=== PATIENT | male | born 1960 | race Caucasian/White ===

== ENCOUNTER 2016-12-27 12:52 | Inpatient (IN) | payer OTHER ==
[2016-12-27 14:19] LABS: CHLORIDE,CL 101 mmol/L (98-110); SODIUM,NA 135 mmol/L (136-146)
[2016-12-27] MEDS: fentaNYL 100 MCG/2 ML SDV IVPUSH PRN ×2 (14:31→15:41)
[2016-12-27] MEDS: Ondansetron 4 MG/2 ML SDV IVPUSH PRN ×2 (14:31→19:57)
[2016-12-27] MEDS: Piperacillin/Tazobactam 3.375 GM in Sodium Chloride 0.9% 50 ML IV SCH ×2 (14:33→19:58)
[2016-12-27] MEDS: Sodium Chloride 0.9% 1,000 ML IV SCH ×2 (14:40→22:58)
[2016-12-27] MEDS ORDERED: Temazepam 15 MG Cap PO PRN (15:28)
[2016-12-27] MEDS ORDERED: Acetaminophen 325 MG Tab PO PRN (15:28)
--- NOTE | 2016-12-27 15:34 | PCM.HP ---
H&P History of Present Illness - General Date of Service: 12/27/16 Admit Problem/Dx: Admission Diagnosis/Problem Admission Diagnosis/Problem Pyelonephritis Source of Information: Patient, Family - History of Present Illness Initial Comments - Free Text/Narative: He has several day history of left flank pain. He had some feelings of fever and nausea the pain worsened and he felt it moving mild gross hematuria yesterday he is feeling a little better He was seen by Dr Ping Nguyen in the office and admission was recommended. Dr Nguyen consulted the hospitalist service. - Related Data Allergies/Adverse Reactions: Allergies Allergy/AdvReac Type Severity Reaction Status Date / Time No Known Allergies Allergy Verified 12/27/16 14:31 Past Medical History Cardiovascular History: Denies: CAD, Cardiomyopathy, Hypertension, MS Respiratory History: Denies: COPD Gastrointestinal History: Denies: Cirrhosis Genitourinary History: Reports: Pyelonephritis, Renal Calculus, Other (See Below ) (prior kidney stone) Neurological History: Denies: Alzheimers Disease, CVA Psychiatric History: Denies: Alzheimers Disease, Dementia Endocrine/Metabolic History: Denies: Diabetes, Type I, Diabetes, Type II Hematologic History: Denies: Anticoagulation Therapy, Bleeding Disorder Dermatologic History: Reports: Cellulitis Other Dermatologic History: lower extremity - Infectious Disease History Infectious Disease History: Reports: MRSA Other Infectious Disease History: Patient verbalized cleared from MRSA from Cellulitis Social & Family History - Family History Family Medical History: Unobtainable - Tobacco Use Smoking Status *Q: Never Smoker - Caffeine Use Caffeine Use: Reports: Coffee - Recreational Drug Use Recreational Drug Use: No H&P Review of Systems - Review of Systems: Review Of Systems: See Below General: Reports: Fever (possible recent fever) HEENT: Denies: Sore Throat Pulmonary: Denies: Shortness of Breath, Cough, Sputum Cardiovascular: Denies: Chest Pain Gastrointestinal: Denies: Black Stool, Bloody Stool, Hematemesis, Hematochezia Genitourinary: Denies: Dysuria, Frequency, Hematuria Psychiatric: Denies: Confusion Exam - Exam Exam: See Below - Vital Signs Vital Signs: Last Vital Signs Temp 98.8 F 12/27/16 14:38 Pulse 69 12/27/16 14:38 Resp 18 12/27/16 14:38 BP 134/84 12/27/16 14:38 Pulse Ox 99 12/27/16 14:38 Weight: 64.7 kg - Exam General: Alert, Oriented, Cooperative Neck: Supple, Trachea Midline Lungs: Clear to Auscultation, Normal Respiratory Effort Cardiovascular: Regular Rate, Regular Rhythm GI/Abdominal Exam: Soft, Non-Tender Back Exam: No: CVA Tenderness (L), CVA Tenderness (R) Extremities: No Pedal Edema Neuro Extensive - Motor, Sensory, Reflexes: No: Facial palsy (L), Facial Palsy ( R), Hemeplagia (R), Hemeplagia (L) - Patient Data Lab Results Last 24 hrs: Laboratory Results - last 24 hr 12/27/16 Range/Units 11:18 Sodium 135 L (136-146) mmol/L Potassium 4.7 (3.5-5.1) mmol/L Chloride 101 (98-110) mmol/L Carbon Dioxide 19 L (21-31) mmol/L BUN 37 H (6.0-23.0) mg/dL Creatinine 2.9 H (0.6-1.5) mg/dL Est Cr Clr Drug Dosing TNP Estimated GFR (MDRD) 22.5 ml/min Glucose 145 H (60-110) mg/dL Calcium 10.6 (8.8-10.8) mg/dL Total Bilirubin 1.2 (0.1-1.5) mg/dL AST 32 (5-40) IU/L ALT 24 (8-54) IU/L Alkaline Phosphatase 101 (40-150) Total Protein 8.4 H (6.0-8.0) g/dL Albumin 5.3 H (3.5-5.0) g/dL Globulin 3.1 (2.0-3.5) g/dL Albumin/Globulin Ratio 1.7 (1.3-2.8) Result Diagrams: 12/27/16 11:18 *Q Meaningful Use (ADM) - VTE *Q VTE Criteria *Q: - Stroke *Q Stroke Criteria *Q: - AMI *Q AMI Criteria *Q: - Problem List (1) Pyelonephritis SNOMED Code(s): 09515671 ICD Code: N12 - TUBULO-INTERSTITIAL NEPHRITIS, NOT SPCF ACUTE OR CHRONIC Status: Acute Current Visit: Yes (2) Ureteral stone SNOMED Code(s): 44280315 ICD Code: N20.1 - CALCULUS OF URETER Status: Acute Current Visit: Yes (3) Pulmonary nodule SNOMED Code(s): 078791617 ICD Code: R91.1 - SOLITARY PULMONARY NODULE Status: Acute Current Visit: Yes Problem List Initiated/Reviewed/Updated: Yes Orders Last 24hrs: Active Orders 24 hr Category Date Time Status Patient Status [ADT] Routine ADT 12/27/16 15:28 Ordered Oxygen Therapy [RC] PRN Care 12/27/16 15:28 Ordered VTE/DVT Education [RC] PER UNIT ROUTINE Care 12/27/16 15:28 Ordered Vital Signs [RC] Q4H Care 12/27/16 15:28 Ordered Regular Diet [DIET] Diet 12/27/16 Dinner Active BASIC METABOLIC PANEL,BMP [CHEM] AM Lab 12/28/16 05:11 Ordered CBC WITH AUTO DIFF [HEME] AM Lab 12/28/16 05:11 Ordered CULTURE URINE [RM] Routine Lab 12/27/16 11:18 Received MAGNESIUM [CHEM] AM Lab 12/28/16 05:11 Ordered Acetaminophen [Tylenol] Med 12/27/16 15:28 Ordered 500 mg PO Q4H PRN Ondansetron [Zofran] Med 12/27/16 13:59 Active 4 mg IVPUSH Q4H PRN Piperacillin/Tazobactam [Piperacil-Tazobact] 3.375 gm Med 12/27/16 14:00 Active Sodium Chloride 0.9% [Normal Saline] 50 ml IV Q6H Sodium Chloride 0.9% [Normal Saline] 1,000 ml Med 12/27/16 14:00 Active IV ASDIRECTED Temazepam [Restoril] Med 12/27/16 15:28 Ordered 15 mg PO BEDTIME PRN fentaNYL [Sublimaze] Med 12/27/16 13:58 Active 50 mcg IVPUSH Q1H PRN Resuscitation Status Routine Resus Stat 12/27/16 15:28 Ordered Medication Orders Fentanyl (Sublimaze) 50 mcg IVPUSH Q1H PRN PRN Reason: Pain Last Admin: 12/27/16 14:31 Dose: 50 mcg Sodium Chloride (Normal Saline) 1,000 mls @ 125 mls/hr IV ASDIRECTED REINALDO Last Admin: 12/27/16 14:40 Dose: 125 mls/hr Piperacillin Sod/Tazobactam (Sod 3.375 gm/ Sodium Chloride) 50 mls @ 100 mls/ hr IV Q6H REINALDO Last Admin: 12/27/16 14:33 Dose: 100 mls/hr Ondansetron HCl (Zofran) 4 mg IVPUSH Q4H PRN PRN Reason: Nausea/Vomiting Last Admin: 12/27/16 14:31 Dose: 4 mg Assessment/Plan Comment:: I advised he and his regarding CT finding of pulmonary nodule and recommendation for repeat imaging in one year will get PA/Lat CXR in am strain urine antibiotics urine culture If not improving tomorrow may need urology consult Hair Mallory MD
[2016-12-27] MEDS: HYDROmorphone/Normal Saline 6 MG/30 ML PCA Vial IV PRN (16:44)
--- NOTE | 2016-12-27 16:50 | CR ---
EXAMINATION: Two-view chest (PA and Lateral views). HISTORY: Pulmonary nodule. FINDINGS: The trachea is midline. The cardiomediastinal silhouette is within normal limits. No pulmonary infilt rates, effusions or pneumothorax. Osseous structures appear unremarkable. IMPRESSION: No acute cardiopulmonary process.
[2016-12-27] MEDS: Tamsulosin 0.4 MG Cap.ER PO SCH (21:40)
[2016-12-28] MEDS: Piperacillin/Tazobactam 3.375 GM in Sodium Chloride 0.9% 50 ML IV SCH ×4 (01:59→20:15)
[2016-12-28] MEDS: Ondansetron 4 MG/2 ML SDV IVPUSH PRN ×4 (02:38→16:29)
[2016-12-28] MEDS: fentaNYL 100 MCG/2 ML SDV IVPUSH PRN ×2 (02:38→10:43)
[2016-12-28] MEDS: Sodium Chloride 0.9% 1,000 ML IV SCH ×3 (07:08→20:14)
[2016-12-28] MEDS: Tamsulosin 0.4 MG Cap.ER PO SCH (08:46)
[2016-12-28] MEDS ORDERED: Scopolamine 1.5 MG Transdermal Patch TOP ONE (12:42)
--- NOTE | 2016-12-28 12:46 | PCM.PREANE ---
Preanesthetic Assessment - Anesthesia/Transfusion/Family Hx Anesthesia History: Prior Anesthesia Reaction (N/V) Type of Anesthesia Reaction: Excessive Nausea/Vomiting Transfusion History: Prior Transfusion Without Reaction - Review of Systems General: No Symptoms Pulmonary: No Symptoms Cardiovascular: No Symptoms Gastrointestinal: Nausea, Vomiting Other: Reports: None - Physical Assessment NPO Status Date: 12/28/16 NPO Status Time: 08:30 O2 Sat by Pulse Oximetry: 96 Respiratory Rate: 14 Vital Signs: Last Vital Signs Temp 36.6 C 12/28/16 11:00 Pulse 96 12/28/16 11:00 Resp 14 12/28/16 11:00 BP 103/70 12/28/16 11:00 Pulse Ox 96 12/28/16 11:00 Height: 1.78 m Weight: 64.7 kg ASA Class: 2E Mental Status: Alert & Oriented x3 Airway Class: Mallampati = 2 Dentition: Reports: Normal Dentition, Dentures Thyro-Mental Finger Breadths: 3 Mouth Opening Finger Breadths: 3 ROM/Head Extension: Full Lungs: Clear to Auscultation, Normal Respiratory Effort Cardiovascular: Regular Rate, Regular Rhythm - Lab Values: Laboratory Last Values WBC 13.87 K/uL (4.0-11.0) H 12/28/16 04:48 RBC 4.07 M/uL (4.50-5.90) L 12/28/16 04:48 Hgb 13.1 g/dL (13.0-17.0) 12/28/16 04:48 Hct 38.0 % (38.0-50.0) 12/28/16 04:48 MCV 93.4 fL (80.0-98.0) 12/28/16 04:48 MCH 32.2 pg (27.0-32.0) H 12/28/16 04:48 MCHC 34.5 g/dL (31.0-37.0) 12/28/16 04:48 RDW Std Deviation 42.1 fl (28.0-62.0) 12/28/16 04:48 RDW Coeff of Quiana 12 % (11.0-15.0) 12/28/16 04:48 Plt Count 299 K/uL (150-400) 12/28/16 04:48 MPV 10.80 fL (7.40-12.00) 12/28/16 04:48 Neut % (Auto) 71.0 % (48.0-80.0) 12/28/16 04:48 Lymph % (Auto) 17.0 % (16.0-40.0) 12/28/16 04:48 [place] % (Auto) 10.4 % (0.0-15.0) 12/28/16 04:48 Eos % (Auto) 1.3 % (0.0-7.0) 12/28/16 04:48 Baso % (Auto) 0.3 % (0.0-1.5) 12/28/16 04:48 Neut # (Auto) 9.9 K/uL (1.4-5.7) H 12/28/16 04:48 Lymph # (Auto) 2.4 K/uL (0.6-2.4) 12/28/16 04:48 [place] # (Auto) 1.4 K/uL (0.0-0.8) H 12/28/16 04:48 Eos # (Auto) 0.2 K/uL (0.0-0.7) 12/28/16 04:48 Baso # (Auto) 0.0 K/uL (0.0-0.1) 12/28/16 04:48 Nucleated RBC % 0.0 /100WBC 12/28/16 04:48 Nucleated RBCs # 0 K/uL 12/28/16 04:48 Sodium 137 mmol/L (136-146) 12/28/16 04:48 Potassium 4.0 mmol/L (3.5-5.1) 12/28/16 04:48 Chloride 106 mmol/L (98-110) 12/28/16 04:48 Carbon Dioxide 17 mmol/L (21-31) L 12/28/16 04:48 BUN 35 mg/dL (6.0-23.0) H 12/28/16 04:48 Creatinine 2.2 mg/dL (0.6-1.5) H 12/28/16 04:48 Est Cr Clr Drug Dosing 33.90 mL/min 12/28/16 04:48 Estimated GFR (MDRD) 31.0 ml/min 12/28/16 04:48 Glucose 97 mg/dL (60-110) 12/28/16 04:48 Calcium 8.6 mg/dL (8.8-10.8) L 12/28/16 04:48 Magnesium 1.8 mEq/L (1.5-2.3) 12/28/16 04:48 Total Bilirubin 1.2 mg/dL (0.1-1.5) 12/27/16 11:18 AST 32 IU/L (5-40) 12/27/16 11:18 ALT 24 IU/L (8-54) 12/27/16 11:18 Alkaline Phosphatase 101 (40-150) 12/27/16 11:18 Total Protein 8.4 g/dL (6.0-8.0) H 12/27/16 11:18 Albumin 5.3 g/dL (3.5-5.0) H 12/27/16 11:18 Globulin 3.1 g/dL (2.0-3.5) 12/27/16 11:18 Albumin/Globulin Ratio 1.7 (1.3-2.8) 12/27/16 11:18 - Allergies Allergies/Adverse Reactions: Allergies Allergy/AdvReac Type Severity Reaction Status Date / Time No Known Allergies Allergy Verified 12/27/16 14:31 - Acknowledgements Anesthesia Type Planned: General Anesthesia Pt an Appropriate Candidate for the Planned Anesthesia: Yes Alternatives and Risks of Anesthesia Discussed w Pt/Guardian: Yes Pt/Guardian Understands and Agrees with Anesthesia Plan: Yes PreAnesthesia Questionnaire - Past Health History Medical/Surgical History: Denies Medical/Surgical History (Neck surgery for herniated disc years back in cervical area, unsure but full neck extension without pain) Cardiovascular History: Reports: None. Denies: CAD, Cardiomyopathy, Hypertension, [place] Respiratory History: Reports: None. Denies: COPD Gastrointestinal History: Reports: None. Denies: Cirrhosis Genitourinary History: Reports: Pyelonephritis, Renal Calculus, Other (See Below ) (prior kidney stone) Neurological History: Reports: None. Denies: Alzheimers Disease, CVA Psychiatric History: Reports: None. Denies: Alzheimers Disease, Dementia Endocrine/Metabolic History: Reports: None. Denies: Diabetes, Type I, Diabetes , Type II Hematologic History: Reports: None. Denies: Anticoagulation Therapy, Bleeding Disorder Dermatologic History: Reports: Cellulitis Other Dermatologic History: lower extremity - Infectious Disease History Infectious Disease History: Reports: MRSA Other Infectious Disease History: Patient verbalized cleared from MRSA from Cellulitis - SUBSTANCE USE Smoking Status *Q: Never Smoker Recreational Drug Use History: No - CURRENT (IN HOUSE) MEDS Current Meds: Current Medications Acetaminophen (Tylenol) 500 mg PO Q4H PRN PRN Reason: Pain (Mild 1-3)/fever Fentanyl (Sublimaze) 50 mcg IVPUSH Q1H PRN PRN Reason: Pain Last Admin: 12/28/16 10:43 Dose: 50 mcg Hydromorphone HCl (Dilaudid Cooling Tower Operator 6 Mg In Ns 30 Ml) 6 mg IV ASDIRECTED PRN; Protocol PRN Reason: pain Last Admin: 12/27/16 16:44 Dose: 6 mg Sodium Chloride (Normal Saline) 1,000 mls @ 125 mls/hr IV ASDIRECTED REINALDO Last Admin: 12/28/16 07:08 Dose: 125 mls/hr Piperacillin Sod/Tazobactam (Sod 3.375 gm/ Sodium Chloride) 50 mls @ 100 mls/ hr IV Q6H REINALDO Last Admin: 12/28/16 08:10 Dose: 100 mls/hr Ondansetron HCl (Zofran) 4 mg IVPUSH Q4H PRN PRN Reason: Nausea/Vomiting Last Admin: 12/28/16 10:43 Dose: 4 mg Scopolamine (Transderm-Scop) 1.5 mg TOP ONETIME ONE Stop: 12/28/16 12:43 Tamsulosin HCl (Flomax) 0.4 mg PO PCBREAKFAST REINALDO Last Admin: 12/28/16 08:46 Dose: 0.4 mg Temazepam (Restoril) 15 mg PO BEDTIME PRN PRN Reason: Sleep
[2016-12-28] MEDS: HYDROmorphone/Normal Saline 6 MG/30 ML PCA Vial IV PRN (13:56)
--- NOTE | 2016-12-28 14:44 | PCM.PN ---
- Review of Systems Systems Review Comment:: feeling better, pain has moved from left flank to groin. - Patient Data Vitals - Most Recent: Last Vital Signs Temp 36.6 C 12/28/16 11:00 Pulse 96 12/28/16 11:00 Resp 14 12/28/16 12:46 BP 103/70 12/28/16 11:00 Pulse Ox 96 12/28/16 12:46 Weight - Most Recent: 64.7 kg I&O - Last 24 Hours: Intake & Output 12/27/16 12/28/16 12/28/16 22:59 06:59 14:59 Intake Total 1283 50 100 Balance 1283 50 100 Lab Results Last 24 Hours: Laboratory Results - last 24 hr 12/28/16 12/28/16 Range/Units 04:48 04:48 WBC 13.87 H (4.0-11.0) K/uL RBC 4.07 L (4.50-5.90) M/uL Hgb 13.1 (13.0-17.0) g/dL Hct 38.0 (38.0-50.0) % MCV 93.4 (80.0-98.0) fL MCH 32.2 H (27.0-32.0) pg MCHC 34.5 (31.0-37.0) g/dL RDW Std Deviation 42.1 (28.0-62.0) fl RDW Coeff of Quiana 12 (11.0-15.0) % Plt Count 299 (150-400) K/uL MPV 10.80 (7.40-12.00) fL Neut % (Auto) 71.0 (48.0-80.0) % Lymph % (Auto) 17.0 (16.0-40.0) % [place] % (Auto) 10.4 (0.0-15.0) % Eos % (Auto) 1.3 (0.0-7.0) % Baso % (Auto) 0.3 (0.0-1.5) % Neut # (Auto) 9.9 H (1.4-5.7) K/uL Lymph # (Auto) 2.4 (0.6-2.4) K/uL [place] # (Auto) 1.4 H (0.0-0.8) K/uL Eos # (Auto) 0.2 (0.0-0.7) K/uL Baso # (Auto) 0.0 (0.0-0.1) K/uL Nucleated RBC % 0.0 /100WBC Nucleated RBCs # 0 K/uL Sodium 137 (136-146) mmol/L Potassium 4.0 (3.5-5.1) mmol/L Chloride 106 (98-110) mmol/L Carbon Dioxide 17 L (21-31) mmol/L BUN 35 H (6.0-23.0) mg/dL Creatinine 2.2 H (0.6-1.5) mg/dL Est Cr Clr Drug Dosing 33.90 mL/min Estimated GFR (MDRD) 31.0 ml/min Glucose 97 (60-110) mg/dL Calcium 8.6 L (8.8-10.8) mg/dL Magnesium 1.8 (1.5-2.3) mEq/L Med Orders - Current: Current Medications Acetaminophen (Tylenol) 500 mg PO Q4H PRN PRN Reason: Pain (Mild 1-3)/fever Fentanyl (Sublimaze) 50 mcg IVPUSH Q1H PRN PRN Reason: Pain Last Admin: 12/28/16 10:43 Dose: 50 mcg Hydromorphone HCl (Dilaudid Environmental Studies Department Chair 6 Mg In Ns 30 Ml) 6 mg IV ASDIRECTED PRN; Protocol PRN Reason: pain Last Admin: 12/28/16 13:56 Dose: 6 mg Sodium Chloride (Normal Saline) 1,000 mls @ 125 mls/hr IV ASDIRECTED REINALDO Last Admin: 12/28/16 07:08 Dose: 125 mls/hr Piperacillin Sod/Tazobactam (Sod 3.375 gm/ Sodium Chloride) 50 mls @ 100 mls/ hr IV Q6H REINALDO Last Admin: 12/28/16 13:04 Dose: 100 mls/hr Ondansetron HCl (Zofran) 4 mg IVPUSH Q4H PRN PRN Reason: Nausea/Vomiting Last Admin: 12/28/16 10:43 Dose: 4 mg Tamsulosin HCl (Flomax) 0.4 mg PO PCBREAKFAST REINALDO Last Admin: 12/28/16 08:46 Dose: 0.4 mg Temazepam (Restoril) 15 mg PO BEDTIME PRN PRN Reason: Sleep Discontinued Medications Scopolamine (Transderm-Scop) 1.5 mg TOP ONETIME ONE Stop: 12/28/16 12:43 Last Admin: 12/28/16 13:04 Dose: 1.5 mg - Problem List Review Problem List Initiated/Reviewed/Updated: Yes - My Orders Last 24 Hours: My Active Orders 12/28/16 14:42 Antiembolic Devices [RC] PER UNIT ROUTINE SCD [Sequential Compression Device] [OM.PC] Routine 12/28/16 Lunch NPO Now [Nothing per Oral Now Diet] [DIET] - Plan Plan:: 56 yo male admitted for pyelonephritis with obstructing stone. Dr. Arteaga was been consulted. Will make patient NPO for possible procedure. Will continue Zosyn. Cultures are pending. I spoke with patient regarding CT finding of pulmonary nodule and need for repeat imaging in one year
[2016-12-28] MEDS ORDERED: Midazolam 1 MG/ML 2 ML SDV ONE (17:24)
[2016-12-28] MEDS ORDERED: fentaNYL 100 MCG/2 ML SDV ONE (17:24)
[2016-12-28] MEDS ORDERED: Propofol 200 MG/20 ML SDV ONE ×2 (17:24→18:24)
[2016-12-28] MEDS ORDERED: Dexamethasone 4 MG/ML 5 ML MDV ONE (17:25)
[2016-12-28] MEDS ORDERED: Ondansetron 4 MG/2 ML SDV ONE (17:25)
[2016-12-28] MEDS ORDERED: fentaNYL 100 MCG/2 ML SDV IVPUSH PRN (19:13)
--- NOTE | 2016-12-28 19:47 | PCM.POSTAN ---
POST ANESTHESIA ASSESSMENT - MENTAL STATUS Mental Status: Alert, Oriented - RESPIRATORY Respiratory Status: Respiratory Rate WNL, Airway Patent, O2 Saturation Stable - CARDIOVASCULAR CV Status: Pulse Rate WNL, Blood Pressure Stable - GASTROINTESTINAL GI Status: No Symptoms - PAIN Pain Score: 0 - POST OP HYDRATION Hydration Status: Adequate & Stable
--- NOTE | 2016-12-28 23:49 | CONS ---
DATE OF CONSULTATION: DATE OF : 1960 PRIMARY CARE PHYSICIAN: None PCP HISTORY OF PRESENT ILLNESS: A 56 years old. He was admitted to the hospital yesterday with sudden onset of left flank pain. His UA showed 30-40 white blood cells per high-power field. His CT scan showed a 3-mm partially obstructive left lower ureteral [place]. [place] [address]. I was asked to see him this morning. The patient is in pain. He actually is vomiting. He just had another dose of Zofran. I reviewed his CT scan. He does have a 3-mm left lower ureteral stone. The kidneys are clean. PHYSICAL EXAMINATION: GENERAL: Shows that he is alert and oriented. He is in pain. VITAL SIGNS: His vital signs are normal. HEART: Normal sinus rhythm. LUNGS: Clear. ABDOMEN: Shows [id number] tenderness over the left lower quadrant and left lumbar region. DIAGNOSIS: Left lower ureteral stone, 3 mm, with indication of recurrent urinary tract infection. RECOMMENDATION: Ureteroscopy and removal of stone. The patient has been on IV antibiotics since admission yesterday. SULLY KAYE /[id number]
[2016-12-29] MEDS: Piperacillin/Tazobactam 3.375 GM in Sodium Chloride 0.9% 50 ML IV SCH ×2 (01:40→08:37)
[2016-12-29] MEDS: Sodium Chloride 0.9% 1,000 ML IV SCH (03:28)
[2016-12-29] MEDS: Tamsulosin 0.4 MG Cap.ER PO SCH (08:37)
--- NOTE | 2016-12-29 10:06 | CR ---
EXAMINATION: Pelvis HISTORY: Ureteroscopy COMPARISON: CT dated 12/27/2016 TECHNIQUE: 2 images provided FINDINGS/IMPRESSION: Operative control films demonstrate selection of the left ureter balloon stone r emoval.
--- NOTE | 2016-12-29 11:26 | OR ---
SURGEON: Chiqui Arteaga M.D. DATE OF PROCEDURE: 12/28/2016 PREOPERATIVE DIAGNOSES: Left lower ureteral stone with urinary tract infection. POSTOPERATIVE DIAGNOSIS: Left lower ureteral stone with urinary tract infection. OPERATION: Cystoscopy, left ureteroscopy, stone removal. DESCRIPTION OF PROCEDURE: The patient is given general anesthesia, placed in dorsal lithotomy position, prepped and draped in sterile drapes. 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 Urethra was then dilated using the Hill II dilators, 28-Irish. The 25-Irish cystoscope was introduced into the bladder. A guidewire was advanced into the left ureter all the way up into the renal pelvis. The lower ureter was dilated using the UroMax II balloon dilator to approximately 15-Irish. The rigid ureteroscope was then advanced in the left lower ureter, and the stone was grasped and removed. With that done, the procedure was terminated. The bladder was emptied, and the patient was moved to recovery room in good condition. SULLY / VARGAS /[id number]
[2016-12-29 12:04] VITALS: BP 129/87
--- NOTE | 2016-12-29 12:15 | PCM.DCSUM1 ---
Discharge Summary - Discharge Data Discharge Date: 12/29/16 Discharge Disposition: Home, Self-Care 01 Condition: Good - Patient Summary/Data Consults: Consultations 12/28/16 14:44 Consult to Physician [CONS] Routine Hospital Course: Admission diagnosis Left pyelonephritis with obstructing kidney stone Acute Kidney injury Hospital Course: 56 yo male who presented with flank pain. CT scan reported 2-3mm obstructing stone in the distal left ureter and mild proximal hydronephrosis. His UA had 40 -50 WBC and +1 bacteria. WBC was 19,920 and Creatinine of 2.9. He was treated with zosyn and IV fluids. Dr. Atreaga was consulted and removed stone by ureteroscopy. Urine culture grew out mixed alexandra. He is discharged today on oral ciprofloxacin for six more days. He is to follow up with Dr. Nguyen. - Patient Instructions Diet: Regular Diet as Tolerated Activity: As Tolerated - Discharge Plan Prescriptions/Med Rec: oxyCODONE HCl/Acetaminophen [Percocet 5-325 mg Tablet] 1 each PO Q6HR #10 tablet Ciprofloxacin [Ciprofloxacin HCl] 500 mg PO BID #12 tablet Home Medications: Home Meds Ciprofloxacin [Ciprofloxacin HCl] 500 mg PO BID #12 tablet 12/29/16 [Rx] oxyCODONE HCl/Acetaminophen [Percocet 5-325 mg Tablet] 1 each PO Q6HR #10 tablet 12/29/16 [Rx] Patient Handouts: Pyelonephritis, Adult, [id number], Ciprofloxacin tablets, Ureteroscopy, Care After Referrals: Hugh Nguyen MD [Physician] - 01/02/17 1:30 pm - Patient Data Vitals - Most Recent: Last Vital Signs Temp 36.6 C 12/29/16 12:00 Pulse 66 12/29/16 12:00 Resp 20 12/29/16 12:00 BP 129/87 12/29/16 12:00 Pulse Ox 99 12/29/16 12:00 Weight - Most Recent: 64.7 kg I&O - Last 24 hours: Intake & Output 12/28/16 12/29/16 12/29/16 22:59 06:59 14:59 Intake Total 3049 1530 50 Output Total 500 550 Balance 2549 980 50 Lab Results - Last 24 hrs: Laboratory Results - last 24 hr 12/29/16 12/29/16 Range/Units 06:00 06:00 WBC 13.31 H (4.0-11.0) K/uL RBC 3.56 L (4.50-5.90) M/uL Hgb 11.6 L (13.0-17.0) g/dL Hct 33.1 L (38.0-50.0) % MCV 93.0 (80.0-98.0) fL MCH 32.6 H (27.0-32.0) pg MCHC 35.0 (31.0-37.0) g/dL RDW Std Deviation 40.8 (28.0-62.0) fl RDW Coeff of Quiana 12 (11.0-15.0) % Plt Count 285 (150-400) K/uL MPV 10.40 (7.40-12.00) fL Neut % (Auto) 82.2 H (48.0-80.0) % Lymph % (Auto) 9.7 L (16.0-40.0) % [place] % (Auto) 7.9 (0.0-15.0) % Eos % (Auto) 0.0 (0.0-7.0) % Baso % (Auto) 0.2 (0.0-1.5) % Neut # (Auto) 11.0 H (1.4-5.7) K/uL Lymph # (Auto) 1.3 (0.6-2.4) K/uL [place] # (Auto) 1.1 H (0.0-0.8) K/uL Eos # (Auto) 0.0 (0.0-0.7) K/uL Baso # (Auto) 0.0 (0.0-0.1) K/uL Nucleated RBC % 0.0 /100WBC Nucleated RBCs # 0 K/uL Sodium 137 (136-146) mmol/L Potassium 4.1 (3.5-5.1) mmol/L Chloride 110 (98-110) mmol/L Carbon Dioxide 17 L (21-31) mmol/L BUN 31 H (6.0-23.0) mg/dL Creatinine 2.3 H (0.6-1.5) mg/dL Est Cr Clr Drug Dosing 32.43 mL/min Estimated GFR (MDRD) 29.5 ml/min Glucose 92 (60-110) mg/dL Calcium 8.1 L (8.8-10.8) mg/dL VICTOR M Results - Last 24 hrs: Microbiology 12/27/16 11:18 Urine Culture - Final Urine, Voided MIXED ALEXANDRA <1000 CFU/ML Med Orders - Current: Current Medications Acetaminophen (Tylenol) 500 mg PO Q4H PRN PRN Reason: Pain (Mild 1-3)/fever Fentanyl (Sublimaze) 50 mcg IVPUSH Q1H PRN PRN Reason: Pain Last Admin: 12/28/16 10:43 Dose: 50 mcg Fentanyl (Sublimaze) 50 mcg IVPUSH Q5M PRN PRN Reason: Pain Hydromorphone HCl (Dilaudid Environmental Assistant 6 Mg In Ns 30 Ml) 6 mg IV ASDIRECTED PRN; Protocol PRN Reason: pain Last Admin: 12/28/16 13:56 Dose: 6 mg Sodium Chloride (Normal Saline) 1,000 mls @ 125 mls/hr IV ASDIRECTED REINALDO Last Admin: 12/29/16 03:28 Dose: 125 mls/hr Piperacillin Sod/Tazobactam (Sod 3.375 gm/ Sodium Chloride) 50 mls @ 100 mls/ hr IV Q6H REINALDO Last Admin: 12/29/16 08:37 Dose: 100 mls/hr Ondansetron HCl (Zofran) 4 mg IVPUSH Q4H PRN PRN Reason: Nausea/Vomiting Last Admin: 12/28/16 16:29 Dose: 4 mg Tamsulosin HCl (Flomax) 0.4 mg PO [facility]AK[facility]ST [facility] Last Admin: 12/29/16 08:37 Dose: 0.4 mg Temazepam (Restoril) 15 mg PO BEDTIME PRN PRN Reason: Sleep Discontinued Medications Dexamethasone (Dexamethasone) Confirm Administered Dose 20 mg .ROUTE .STK-MED ONE Stop: 12/28/16 17:26 Fentanyl (Sublimaze) Confirm Administered Dose 200 mcg .ROUTE .STK-MED ONE Stop: 12/28/16 17:25 Lidocaine HCl (Xylocaine-Mpf 1%) Confirm Administered Dose 5 ml .ROUTE .STK-MED ONE Stop: 12/28/16 17:26 Midazolam HCl (Versed 1 Mg/Ml) Confirm Administered Dose 2 mg .ROUTE .STK-MED ONE Stop: 12/28/16 17:25 Ondansetron HCl (Zofran) Confirm Administered Dose 4 mg .ROUTE .STK-MED ONE Stop: 12/28/16 17:26 Propofol (Diprivan 20 Ml) Confirm Administered Dose 200 mg .ROUTE .STK-MED ONE Stop: 12/28/16 17:25 Propofol (Diprivan 20 Ml) Confirm Administered Dose 200 mg .ROUTE .STK-MED ONE Stop: 12/28/16 18:25 Scopolamine (Transderm-Scop) 1.5 mg TOP ONETIME ONE Stop: 12/28/16 12:43 Last Admin: 12/28/16 13:04 Dose: 1.5 mg *Q Meaningful Use (DIS) - VTE *Q VTE Criteria *Q: - Stroke *Q Stroke Criteria *Q: - AMI *Q AMI Criteria *Q:
== END 2016-12-29 12:23 | disposition home or self-care (01) | DRG 669 ==
LOC: MW.MS 12:52
PROVIDERS: ADMIT Family Medicine; ATTEND Family Medicine
PROC: 0TC78ZZ Extirpation of Matter from Left Ureter, Via Natural or Artificial Opening Endoscopic (ICD-10-PCS; principal; 2016-12-28)
DX: N12 Tubulo-interstitial nephritis, not specified as acute or chronic (principal); K95.89 Other complications of other bariatric procedure; N13.2 Hydronephrosis with renal and ureteral calculous obstruction; N17.9 Acute kidney failure, unspecified; N39.0 Urinary tract infection, site not specified; R91.1 Solitary pulmonary nodule; R10.9 Unspecified abdominal pain; R11.2 Nausea with vomiting, unspecified; N13.39 Other hydronephrosis; K57.90 Diverticulosis of intestine, part unspecified, without perforation or abscess without bleeding
CPT/HCPCS: 00910; 36415; 71020; 71020-26; 74176; 74176-26; 76000; 76000-26; 80048; 80053; 81001; 83735; 85025; 87086; 88300; A9270-GY; C1769; J1100; J1170; J2250; J2405; J2543; J2704; J3010; J7040; J7050

== ENCOUNTER 2016-12-31 10:15 | Observation (INO) | payer OTHER ==
--- NOTE | 2016-12-31 10:24 | EDM.PDOC ---
ED HPI GENERAL MEDICAL PROBLEM - General Stated Complaint: ABDOMINAL PAIN Time Seen by Provider: 12/31/16 10:18 Source of Information: Reports: Patient History Limitations: Reports: No Limitations - History of Present Illness INITIAL COMMENTS - FREE TEXT/NARRATIVE: HISTORY AND PHYSICAL: []Presents with abdominal pain History of Present Illness: []Patient had stone retrieval on per Dr. Arteaga. He was released from the hospital on Sunday. Continue to have pain Sunday and now Sunday is back in with left sided pain from where his stone was he has been nauseated and vomiting. Has not been eating. States that he is not voiding very much. Review of Systems: As per history of present illness and below otherwise all systems reviewed and negative. Past medical history: As per history of present illness and as reviewed below otherwise noncontributory. Surgical history: As per history of present illness and as reviewed below otherwise noncontributory. Social history: No reported history of drug or alcohol abuse. Family history: As per history of present illness and as reviewed below otherwise noncontributory. Physical exam: Alert and oriented.answering questions appropriately in full sentences without shortness of breath . HEENT: Atraumatic, normocehpalic, pupils reactive, negative for conjunctival pallor or scleral icterus, mucous membranes moist, throat clear, neck supple, nontender, trachea midline. Lungs: Clear to auscultation, breath sounds equal bilaterally, chest non tender. Heart: S1S2, regular, negative for clicks, rubs, or JVD. Abdomen: Soft, nondistended, tender to left lower quadrant . Negative for masses or hepatossplenmegaly. Negative for costovertebral tenderness. Pelvis: Stable nontender. Genitourinary: Deferred. Rectal: Deferred Extremities: Atraumatic, negative for cords or calf pain. Neurovascular unremarkable. Neuro: Awake, alert, oriented. Cranial nerves II through XII unremarkable. Cerebellum unremarkable. Motor and sensory unremarkable throughout. Exam nonfocal. Jenni is here 1157. CT reviewed in his reexamination patient, will need stent placement Diagnostics: [Bladder scan ] Therapeutics: [Morphine Zofran Dilaudid] Impression: []Obstructed kidney Plan: [stint placement per Dr. Arteaga] Definitive disposition and diagnosis as appropriate pending reevaluation and review of above. Left Flank Pain Score (Numeric/FACES): 9 - Related Data Allergies Allergy/AdvReac Type Severity Reaction Status Date / Time No Known Allergies Allergy Verified 12/31/16 10:26 Home Meds: Home Meds Ciprofloxacin [Ciprofloxacin HCl] 500 mg PO BID #12 tablet 12/29/16 [Rx] oxyCODONE HCl/Acetaminophen [Percocet 5-325 mg Tablet] 1 each PO Q6HR #10 tablet 12/29/16 [Rx] Past Medical History - Past Health History Medical/Surgical History: Denies Medical/Surgical History (Neck surgery for herniated disc years back in cervical area, unsure but full neck extension without pain) Cardiovascular History: Reports: None. Denies: CAD, Cardiomyopathy, Hypertension, [place] Respiratory History: Reports: None. Denies: COPD Gastrointestinal History: Reports: None. Denies: Cirrhosis Genitourinary History: Reports: Pyelonephritis, Renal Calculus, Other (See Below ) (prior kidney stone) Neurological History: Reports: None. Denies: Alzheimers Disease, CVA Psychiatric History: Reports: None. Denies: Alzheimers Disease, Dementia Endocrine/Metabolic History: Reports: None. Denies: Diabetes, Type I, Diabetes , Type II Hematologic History: Reports: None. Denies: Anticoagulation Therapy, Bleeding Disorder Dermatologic History: Reports: Cellulitis Other Dermatologic History: lower extremity - Infectious Disease History Infectious Disease History: Reports: MRSA Other Infectious Disease History: Patient verbalized cleared from MRSA from Cellulitis Social & Family History - Family History Family Medical History: Unobtainable - Tobacco Use Smoking Status *Q: Never Smoker - Caffeine Use Caffeine Use: Reports: Coffee - Recreational Drug Use Recreational Drug Use: No ED ROS GENERAL - Review of Systems Review Of Systems: ROS reveals no pertinent complaints other than HPI. ED EXAM, GENERAL - Physical Exam Exam: See Below (See dictation) Course - Vital Signs Last Recorded V/S: Last Vital Signs Temp 36.7 C 12/31/16 10:26 Pulse 65 12/31/16 12:26 Resp 24 H 12/31/16 12:26 BP 158/96 H 12/31/16 12:26 Pulse Ox 100 12/31/16 12:26 - Orders/Labs/Meds Orders: Active Orders 24 hr Category Date Time Status Abdomen Pelvis wo Cont [CT] Stat Exams 12/31/16 11:57 Taken Labs: Laboratory Tests 09/12/31/16 12/31/16 Range/Units 10:27 10:27 10:30 WBC 18.77 H (4.0-11.0) K/uL RBC 4.52 (4.50-5.90) M/uL Hgb 14.7 (13.0-17.0) g/dL Hct 41.0 (38.0-50.0) % MCV 90.7 (80.0-98.0) fL MCH 32.5 H (27.0-32.0) pg MCHC 35.9 (31.0-37.0) g/dL RDW Std Deviation 40.0 (28.0-62.0) fl RDW Coeff of Quiana 12 (11.0-15.0) % Plt Count 368 (150-400) K/uL MPV 10.40 (7.40-12.00) fL Neut % (Auto) 74.6 (48.0-80.0) % Lymph % (Auto) 11.9 L (16.0-40.0) % Dane % (Auto) 12.2 (0.0-15.0) % Eos % (Auto) 1.1 (0.0-7.0) % Baso % (Auto) 0.2 (0.0-1.5) % Neut # (Auto) 14.0 H (1.4-5.7) K/uL Lymph # (Auto) 2.2 (0.6-2.4) K/uL Dane # (Auto) 2.3 H (0.0-0.8) K/uL Eos # (Auto) 0.2 (0.0-0.7) K/uL Baso # (Auto) 0.0 (0.0-0.1) K/uL Nucleated RBC % 0.0 /100WBC Nucleated RBCs # 0 K/uL Sodium 135 L (136-146) mmol/L Potassium 3.3 L (3.5-5.1) mmol/L Chloride 104 (98-110) mmol/L Carbon Dioxide 15 L (21-31) mmol/L BUN 19 (6.0-23.0) mg/dL Creatinine 2.4 H (0.6-1.5) mg/dL Est Cr Clr Drug Dosing 31.16 mL/min Estimated GFR (MDRD) 28.0 ml/min Glucose 117 H (60-110) mg/dL Calcium 10.4 (8.8-10.8) mg/dL Total Bilirubin 0.7 (0.1-1.5) mg/dL AST 26 (5-40) IU/L ALT 27 (8-54) IU/L Alkaline Phosphatase 84 (40-150) Total Protein 8.1 H (6.0-8.0) g/dL Albumin 4.6 (3.5-5.0) g/dL Globulin 3.5 (2.0-3.5) g/dL Albumin/Globulin Ratio 1.3 (1.3-2.8) Urine Color YELLOW Urine Appearance CLEAR Urine pH 6.0 (5.0-8.0) Ur Specific Juliette 1.025 (1.001-1.035) Urine Protein 30 (NEGATIVE) mg/dL Urine Glucose (UA) 100 H (NEGATIVE) mg/dL Urine Ketones NEGATIVE (NEGATIVE) mg/dL Urine Occult Blood LARGE H (NEGATIVE) Urine Nitrite NEGATIVE (NEGATIVE) Urine Bilirubin SMALL H (NEGATIVE) Urine Ictotest NEGATIVE Urine Urobilinogen 0.2 (<2.0) EU/dL Ur Leukocyte Esterase TRACE (NEGATIVE) Urine RBC 85-90 (0-2/HPF) Urine WBC 35-40 (0-5/HPF) Ur Epithelial Cells FEW (NONE-FEW) Urine Bacteria FEW (NEGATIVE) WBC Casts 0-1 (NEGATIVE) Meds: Medications Discontinued Medications Generic Name Dose Route Start Last Admin Trade Name Freq PRN Reason Stop Dose Admin Hydromorphone HCl 1 mg 12/31/16 11:42 12/31/16 11:51 Dilaudid IVPUSH 12/31/16 11:43 1 mg ONETIME ONE Administration Sodium Chloride 1,000 mls @ 999 mls/hr 12/31/16 10:40 12/31/16 10:52 Normal Saline IV 12/31/16 11:40 999 mls/hr STAT ONE Administration Sodium Chloride 1,000 mls @ 999 mls/hr 12/31/16 11:42 12/31/16 11:51 Normal Saline IV 12/31/16 12:42 999 mls/hr .Bolus ONE Administration Morphine Sulfate 2 mg 12/31/16 10:40 12/31/16 10:52 Morphine IVPUSH 12/31/16 10:41 2 mg ONETIME ONE Administration Morphine Sulfate 2 mg 12/31/16 11:18 12/31/16 11:22 Morphine IVPUSH 12/31/16 11:19 2 mg ONETIME ONE Administration Ondansetron HCl 4 mg 12/31/16 10:40 12/31/16 10:52 Zofran IVPUSH 12/31/16 10:41 4 mg ONETIME ONE Administration Prochlorperazine Edisylate 5 mg 12/31/16 11:43 12/31/16 11:51 Compazine IM 12/31/16 11:44 5 mg ONETIME ONE Administration Departure - Departure Time of Disposition: 13:00 Disposition: Refer to Observation Condition: Fair Clinical Impression: Obstruction of kidney - Discharge Information Referrals: Hugh Nguyen MD [Primary Care Provider] - - My Orders Last 24 Hours: My Active Orders 12/31/16 11:57 Abdomen Pelvis wo Cont [CT] Stat - Assessment/Plan Last 24 Hours: My Active Orders 12/31/16 11:57 Abdomen Pelvis wo Cont [CT] Stat
[2016-12-31] MEDS ORDERED: Sodium Chloride 0.9% 1,000 ML IV ONE ×2 (10:40→11:42)
[2016-12-31] MEDS ORDERED: Ondansetron 4 MG/2 ML SDV IVPUSH ONE (10:40)
[2016-12-31] MEDS ORDERED: Morphine 2 MG/ML Syringe IVPUSH ONE ×2 (10:40→11:18)
[2016-12-31] MEDS ORDERED: HYDROmorphone 1 MG/ML Syringe IVPUSH ONE (11:42)
[2016-12-31] MEDS ORDERED: Prochlorperazine 10 MG/2 ML SDV IM ONE (11:43)
[2016-12-31] MEDS ORDERED: Ciprofloxacin in D5W 400 MG in Premix Bag 1 BAG IV ONE ×2 (13:15)
[2016-12-31] MEDS ORDERED: Succinylcholine/Normal Saline 200 MG/10 ML Syringe ONE (13:40)
[2016-12-31] MEDS ORDERED: fentaNYL 100 MCG/2 ML SDV ONE (13:40)
[2016-12-31] MEDS ORDERED: Rocuronium 10 MG/ML 10 ML Syringe ONE (13:40)
[2016-12-31] MEDS ORDERED: Propofol 200 MG/20 ML SDV ONE (13:40)
[2016-12-31] MEDS ORDERED: Midazolam 1 MG/ML 2 ML SDV ONE (13:40)
[2016-12-31] MEDS ORDERED: Dexamethasone 4 MG/ML 5 ML MDV ONE (13:40)
[2016-12-31] MEDS ORDERED: Lidocaine 2% 5 ML SDV ONE (13:40)
[2016-12-31] MEDS ORDERED: Scopolamine 1.5 MG Transdermal Patch ONE (14:02)
[2016-12-31] MEDS ORDERED: fentaNYL 100 MCG/2 ML SDV IVPUSH PRN (14:25)
--- NOTE | 2016-12-31 14:25 | PCM.PREANE ---
Preanesthetic Assessment - Anesthesia/Transfusion/Family Hx Anesthesia History: Prior Anesthesia Reaction (N/V) Type of Anesthesia Reaction: Excessive Nausea/Vomiting Family History of Anesthesia Reaction: No Transfusion History: Prior Transfusion Without Reaction - Review of Systems General: No Symptoms Pulmonary: No Symptoms Cardiovascular: No Symptoms Gastrointestinal: Nausea (r/t current illness), Vomiting Neurological: No Symptoms Other: Reports: None - Physical Assessment NPO Status Date: 12/31/16 NPO Status Time: 06:00 (approximately 12 oz water) O2 Sat by Pulse Oximetry: 99 Respiratory Rate: 16 Vital Signs: Last Vital Signs Temp 36.7 C 12/31/16 10:26 Pulse 74 12/31/16 13:16 Resp 16 12/31/16 13:16 BP 156/87 H 12/31/16 13:16 Pulse Ox 99 12/31/16 13:16 Height: 1.78 m Weight: 64.864 kg ASA Class: 2E Mental Status: Alert & Oriented x3 Airway Class: Mallampati = 2 Dentition: Reports: Normal Dentition (Extensive implants upper and lower) Thyro-Mental Finger Breadths: 3 Mouth Opening Finger Breadths: 3 ROM/Head Extension: Full Lungs: Clear to Auscultation, Normal Respiratory Effort Cardiovascular: Regular Rate, Regular Rhythm - Lab Values: Laboratory Last Values WBC 18.77 K/uL (4.0-11.0) H 12/31/16 10:27 RBC 4.52 M/uL (4.50-5.90) 12/31/16 10:27 Hgb 14.7 g/dL (13.0-17.0) 12/31/16 10:27 Hct 41.0 % (38.0-50.0) 12/31/16 10:27 MCV 90.7 fL (80.0-98.0) 12/31/16 10:27 MCH 32.5 pg (27.0-32.0) H 12/31/16 10:27 MCHC 35.9 g/dL (31.0-37.0) 12/31/16 10:27 RDW Std Deviation 40.0 fl (28.0-62.0) 12/31/16 10:27 RDW Coeff of Quiana 12 % (11.0-15.0) 12/31/16 10:27 Plt Count 368 K/uL (150-400) 12/31/16 10:27 MPV 10.40 fL (7.40-12.00) 12/31/16 10:27 Neut % (Auto) 74.6 % (48.0-80.0) 12/31/16 10:27 Lymph % (Auto) 11.9 % (16.0-40.0) L 12/31/16 10:27 Carter % (Auto) 12.2 % (0.0-15.0) 12/31/16 10:27 Eos % (Auto) 1.1 % (0.0-7.0) 12/31/16 10:27 Baso % (Auto) 0.2 % (0.0-1.5) 12/31/16 10:27 Neut # (Auto) 14.0 K/uL (1.4-5.7) H 12/31/16 10:27 Lymph # (Auto) 2.2 K/uL (0.6-2.4) 12/31/16 10:27 Carter # (Auto) 2.3 K/uL (0.0-0.8) H 12/31/16 10:27 Eos # (Auto) 0.2 K/uL (0.0-0.7) 12/31/16 10:27 Baso # (Auto) 0.0 K/uL (0.0-0.1) 12/31/16 10:27 Nucleated RBC % 0.0 /100WBC 12/31/16 10:27 Nucleated RBCs # 0 K/uL 12/31/16 10:27 Sodium 135 mmol/L (136-146) L 12/31/16 10:27 Potassium 3.3 mmol/L (3.5-5.1) L 12/31/16 10:27 Chloride 104 mmol/L (98-110) 12/31/16 10:27 Carbon Dioxide 15 mmol/L (21-31) L 12/31/16 10:27 BUN 19 mg/dL (6.0-23.0) 12/31/16 10:27 Creatinine 2.4 mg/dL (0.6-1.5) H 12/31/16 10:27 Est Cr Clr Drug Dosing 31.16 mL/min 12/31/16 10:27 Estimated GFR (MDRD) 28.0 ml/min 12/31/16 10:27 Glucose 117 mg/dL (60-110) H 12/31/16 10:27 Calcium 10.4 mg/dL (8.8-10.8) 12/31/16 10:27 Total Bilirubin 0.7 mg/dL (0.1-1.5) 12/31/16 10:27 AST 26 IU/L (5-40) 12/31/16 10:27 ALT 27 IU/L (8-54) 12/31/16 10:27 Alkaline Phosphatase 84 (40-150) 12/31/16 10:27 Total Protein 8.1 g/dL (6.0-8.0) H 12/31/16 10:27 Albumin 4.6 g/dL (3.5-5.0) 12/31/16 10:27 Globulin 3.5 g/dL (2.0-3.5) 12/31/16 10:27 Albumin/Globulin Ratio 1.3 (1.3-2.8) 12/31/16 10:27 Urine Color YELLOW 12/31/16 10:30 Urine Appearance CLEAR 12/31/16 10:30 Urine pH 6.0 (5.0-8.0) 12/31/16 10:30 Ur Specific Seffner 1.025 (1.001-1.035) 12/31/16 10:30 Urine Protein 30 mg/dL (NEGATIVE) 12/31/16 10:30 Urine Glucose (UA) 100 mg/dL (NEGATIVE) H 12/31/16 10:30 Urine Ketones NEGATIVE mg/dL (NEGATIVE) 12/31/16 10:30 Urine Occult Blood LARGE (NEGATIVE) H 12/31/16 10:30 Urine Nitrite NEGATIVE (NEGATIVE) 12/31/16 10:30 Urine Bilirubin SMALL (NEGATIVE) H 12/31/16 10:30 Urine Ictotest NEGATIVE 12/31/16 10:30 Urine Urobilinogen 0.2 EU/dL (<2.0) 12/31/16 10:30 Ur Leukocyte Esterase TRACE (NEGATIVE) 12/31/16 10:30 Urine RBC 85-90 (0-2/HPF) 12/31/16 10:30 Urine WBC 35-40 (0-5/HPF) 12/31/16 10:30 Ur Epithelial Cells FEW (NONE-FEW) 12/31/16 10:30 Urine Bacteria FEW (NEGATIVE) 12/31/16 10:30 WBC Casts 0-1 (NEGATIVE) 12/31/16 10:30 - Allergies Allergies/Adverse Reactions: Allergies Allergy/AdvReac Type Severity Reaction Status Date / Time No Known Allergies Allergy Verified 12/31/16 10:26 - Acknowledgements Anesthesia Type Planned: General Anesthesia Pt an Appropriate Candidate for the Planned Anesthesia: Yes Alternatives and Risks of Anesthesia Discussed w Pt/Guardian: Yes Pt/Guardian Understands and Agrees with Anesthesia Plan: Yes PreAnesthesia Questionnaire - Past Health History Medical/Surgical History: Denies Medical/Surgical History (Neck surgery for herniated disc years back in cervical area, unsure but full neck extension without pain) Cardiovascular History: Reports: None. Denies: CAD, Cardiomyopathy, Hypertension, [place] Respiratory History: Reports: None. Denies: COPD Gastrointestinal History: Reports: None. Denies: Cirrhosis Genitourinary History: Reports: Pyelonephritis, Renal Calculus, Other (See Below ) (prior kidney stone) Neurological History: Reports: None. Denies: Alzheimers Disease, CVA Psychiatric History: Reports: None. Denies: Alzheimers Disease, Dementia Endocrine/Metabolic History: Reports: None. Denies: Diabetes, Type I, Diabetes , Type II Hematologic History: Reports: None. Denies: Anticoagulation Therapy, Bleeding Disorder Dermatologic History: Reports: Cellulitis Other Dermatologic History: lower extremity - Infectious Disease History Infectious Disease History: Reports: MRSA Other Infectious Disease History: Patient verbalized cleared from MRSA from Cellulitis - SUBSTANCE USE Smoking Status *Q: Never Smoker Recreational Drug Use History: No Recreational Drug Type: Reports: Marijuana/Hashish - HOME MEDS Home Medications: Home Meds Ciprofloxacin [Ciprofloxacin HCl] 500 mg PO BID #12 tablet 12/29/16 [Rx] oxyCODONE HCl/Acetaminophen [Percocet 5-325 mg Tablet] 1 each PO Q6HR #10 tablet 12/29/16 [Rx] - CURRENT (IN HOUSE) MEDS Current Meds: Current Medications Tobramycin 120 mg/ Sodium (Chloride) 103 mls @ 103 mls/hr IV ONETIME ONE Stop: 12/31/16 14:29 Last Admin: 12/31/16 13:41 Dose: 103 mls/hr Discontinued Medications Dexamethasone (Dexamethasone) Confirm Administered Dose 20 mg .ROUTE .STK-MED ONE Stop: 12/31/16 13:41 Fentanyl (Sublimaze) Confirm Administered Dose 100 mcg .ROUTE .STK-MED ONE Stop: 12/31/16 13:41 Hydromorphone HCl (Dilaudid) 1 mg IVPUSH ONETIME ONE Stop: 12/31/16 11:43 Last Admin: 12/31/16 11:51 Dose: 1 mg Sodium Chloride (Normal Saline) 1,000 mls @ 999 mls/hr IV STAT ONE Stop: 12/31/16 11:40 Last Admin: 12/31/16 10:52 Dose: 999 mls/hr Sodium Chloride (Normal Saline) 1,000 mls @ 999 mls/hr IV .Bolus ONE Stop: 12/31/16 12:42 Last Admin: 12/31/16 11:51 Dose: 999 mls/hr Ciprofloxacin/Dextrose 400 mg/ (Premix) 200 mls @ 200 mls/hr IV ONETIME ONE Stop: 12/31/16 14:14 Last Admin: 12/31/16 13:14 Dose: 200 mls/hr Lidocaine (Xylocaine-Mpf 2%) Confirm Administered Dose 5 ml .ROUTE .STK-MED ONE Stop: 12/31/16 13:41 Midazolam HCl (Versed 1 Mg/Ml) Confirm Administered Dose 2 mg .ROUTE .STK-MED ONE Stop: 12/31/16 13:41 Morphine Sulfate (Morphine) 2 mg IVPUSH ONETIME ONE Stop: 12/31/16 10:41 Last Admin: 12/31/16 10:52 Dose: 2 mg Morphine Sulfate (Morphine) 2 mg IVPUSH ONETIME ONE Stop: 12/31/16 11:19 Last Admin: 12/31/16 11:22 Dose: 2 mg Ondansetron HCl (Zofran) 4 mg IVPUSH ONETIME ONE Stop: 12/31/16 10:41 Last Admin: 12/31/16 10:52 Dose: 4 mg Prochlorperazine Edisylate (Compazine) 5 mg IM ONETIME ONE Stop: 12/31/16 11:44 Last Admin: 12/31/16 11:51 Dose: 5 mg Propofol (Diprivan 20 Ml) Confirm Administered Dose 200 mg .ROUTE .STK-MED ONE Stop: 12/31/16 13:41 Rocuronium [place] (Zemuron) Confirm Administered Dose 100 mg .ROUTE .STK-MED ONE Stop: 12/31/16 13:41 Scopolamine (Transderm-Scop) Confirm Administered Dose 1.5 mg .ROUTE .STK-MED ONE Stop: 12/31/16 14:03 Succinylcholine Chloride (Succinylcholine In Ns Pf) Confirm Administered Dose 200 mg .ROUTE .STK-MED ONE Stop: 12/31/16 13:41
[2016-12-31] MEDS ORDERED: Ketorolac 30 MG/ML SDV ONE (14:27)
[2016-12-31] MEDS ORDERED: Ondansetron 4 MG/2 ML SDV ONE (14:27)
[2016-12-31] MEDS ORDERED: cefTRIAXone 2 GM in Premix Bag 1 BAG IV ONE (14:48)
--- NOTE | 2016-12-31 14:59 | PCM.POSTAN ---
POST ANESTHESIA ASSESSMENT - MENTAL STATUS Mental Status: Alert, Oriented - RESPIRATORY Respiratory Status: Respiratory Rate WNL, Airway Patent, O2 Saturation Stable - CARDIOVASCULAR CV Status: Pulse Rate WNL, Blood Pressure Stable - GASTROINTESTINAL GI Status: No Symptoms - POST OP HYDRATION Hydration Status: Adequate & Stable
[2016-12-31] MEDS ORDERED: Dextrose 5%-Lact Ringers w/KCl 1,000 ML IV SCH (15:00)
[2016-12-31] MEDS: ceFAZolin 1 GM in Premix Bag 1 BAG IV SCH (17:03)
[2016-12-31] MEDS: Lactated Ringers 1,000 ML IV SCH (17:06)
[2016-12-31] MEDS: HYDROmorphone 2 MG/ML Syringe IVPUSH PRN ×2 (18:28→22:51)
--- NOTE | 2016-12-31 18:32 | PCM48HPAN ---
Post Anesthesia Note - EVALUATION WITHIN 48HRS OF ANESTHETIC Vital Signs in Normal Range: Yes Patient Participated in Evaluation: Yes Respiratory Function Stable: Yes Airway Patent: Yes Cardiovascular Function Stable: Yes Hydration Status Stable: Yes Pain Control Satisfactory: Yes Nausea and Vomiting Control Satisfactory: Yes Mental Status Recovered: Yes
[2017-01-01] MEDS: ceFAZolin 1 GM in Premix Bag 1 BAG IV SCH ×4 (00:02→23:11)
[2017-01-01] MEDS: Lactated Ringers 1,000 ML IV SCH (02:34)
[2017-01-01] MEDS: HYDROmorphone 2 MG/ML Syringe IVPUSH PRN (05:48)
[2017-01-01 06:35] LABS: CHLORIDE,CL 110 mmol/L (98-110); SODIUM,NA 139 mmol/L (136-146)
--- NOTE | 2017-01-01 10:16 | CR ---
EXAMINATION: Left retrograde ureteropyelogram HISTORY: Kidney stones COMPARISON: CT dated 12/31/2016 TECHNIQUE: Total of 9 fluoroscopic images provided. FINDINGS/IMPRESSION: Retrograde injection of contrast demonstrates a mildly prominent left renal ghassan ecting system. Selection of the left ureter and subsequent stent placement also noted.
[2017-01-01] MEDS ORDERED: Sodium Chloride 0.9% 10 ML Syringe FLUSH PRN (10:35)
[2017-01-01] MEDS ORDERED: Sodium Chloride 0.9% 2.5 ML Syringe FLUSH PRN (10:35)
[2017-01-01] MEDS: HYDROmorphone 2 MG Tab PO PRN ×4 (10:50→23:10)
--- NOTE | 2017-01-01 18:43 | CT ---
EXAM DATE: 12/31/16 PATIENT'S AGE: 56 Patient: BOB DOW Facility: [place], [place] Site . Site : 1960 Study: CT Abdomen/Pelvis [id number]/24/2017 12:29:29 PM Ordering Physician: Doctor Francisco Final Report: INDICATION: Severe abdomen, left flank and back pain. TECHNIQUE: CT abdomen and pelvis without contrast. COMPARISON: 2016. FINDINGS: LOWER CHEST: Unremarkable. LIVER: Normal in size and attenuation. No masses. GALLBLADDER AND BILE DUCTS: Status post cholecystectomy. PANCREAS: Unremarkable. No mass or inflammation. SPLEEN: Normal in size. No masses. ADRENAL GLANDS: Normal in size. No nodules. KIDNEYS: Interval worsening of moderate to severe left renal hydronephrosis with extensive edema about the collecting system. No current kidney or ureteral stone. GI TRACT: Moderate diverticulosis. Normal in caliber. No sign of mass or inflammation. VASCULATURE: Unremarkable. LYMPH NODES: No lymphadenopathy. OMENTUM/PERITONEUM/ABDOMINAL WALL: Unremarkable. No sign of mass or infiltration. No free air or significant free fluid. PELVIS: Unremarkable. No pelvic masses. BONES: Unremarkable for age. IMPRESSION: Interval worsening of moderate to severe left renal hydronephrosis with extensive edema of both the collecting system. No current obstructing stone. This appearance can be seen with a urinary tract infection and/or obstruction from a lesion such as a blood clot. Dictated by Kevin Nicole MD @ 12/31/2016 1:17:58 PM Dictated by: Kevin Nicole MD @ 12/31/2016 13:18:01 (Electronic Signature) Report Signed by Proxy. [facility]
[2017-01-02] MEDS: HYDROmorphone 2 MG Tab PO PRN ×3 (03:06→11:33)
[2017-01-02] MEDS: ceFAZolin 1 GM in Premix Bag 1 BAG IV SCH (07:27)
[2017-01-02 11:01] VITALS: BP 150/92
--- NOTE | 2017-01-03 04:34 | DISCH ---
DATE OF DISCHARGE: 01/02/2017 PRIMARY CARE PHYSICIAN: Bernadette PCP HOSPITAL COURSE: Ricky is 56 years old. He had left ureteroscopy stone removal on the of this month for a left lower ureteral stone. However, he came back on the with severe left flank pain. CT scan showed hydronephrosis and hydroureter on the left. He was taken to the operating room upon this admission and had cystoscopy and double-J stent placement. At the time he came in, his white blood count was 18,000, his creatinine was 2.4. Postoperatively, he did well. He was given one dose of tobramycin 120 mg and one dose of Rocephin. He was then maintained on Keflex. His previous urine cultures showed mixed alexandra before the last procedure. He did have at this time a very extensive perinephric reaction. He continued to improve postop. He remained afebrile. His white blood count came all the way down to 12,000. His renal function is down back to normal with a creatinine of 1.1. He was sent home on the second postop day on Keflex for the next 10 days and Dilaudid for pain. He will be coming to my office in five days to have his double-J stent removed. SULLY / VARGAS /[id number]
--- NOTE | 2017-03-07 19:35 | OR ---
SURGEON: Chiqui Arteaga M.D. DATE OF PROCEDURE: 12/31/2016 PREOPERATIVE DIAGNOSIS: Left-sided hydronephrosis and hydroureter, status post ureteroscopy with stone removal. POSTOPERATIVE DIAGNOSIS: Left-sided hydronephrosis and hydroureter, status post ureteroscopy with stone removal. PROCEDURE: 1. Cystoscopy. 2. Double-J stent placement. DESCRIPTION OF PROCEDURE: Under general anesthesia, the patient was placed in dorsal lithotomy position and prepped and draped in sterile drapes. Cystourethroscopy was done. A guidewire was advanced in the left renal pelvis all the way up into the left renal pelvis over which a 6-Peruvian 26 cm double-J stent was placed. Position was confirmed with fluoroscopy. The bladder was emptied, and the patient was moved to recovery room in good condition. PRIMARY SURGEON: SECONDARY SURGEON: STUDENT ASSISTANCE COUNSELOR: REASON STUDENT ASSISTANCE COUNSELOR WAS NECESSARY: ROLE OF STUDENT ASSISTANCE COUNSELOR: SULLY KAYE /[id number]
--- NOTE | 2017-06-12 14:39 | PN ---
One day postop, he is doing well. He is stable. He is having no significant pain. He should be able to go home tomorrow. SULLY / VARGAS /[id number]
--- NOTE | 2017-06-12 14:39 | DISCH ---
DATE OF DISCHARGE: 01/02/2017 PRIMARY CARE PHYSICIAN: None PCP Ricky was seen on 12/31/2016, where he had cystoscopy and double-J stent placement for left-sided hydronephrosis, status post ureteroscopy with stone removal. He was taken to the operating room, a cysto and double-J stent placement was done. He was kept in the hospital and was sent home stable without pain on 01/02/2017. SULLY / VARGAS /[id number]
== END 2017-01-02 12:05 | disposition home or self-care (01) ==
LOC: MW.ED 10:15 → MW.SDS 13:17 → MW.MS 15:23
PROVIDERS: ADMIT Urology; ATTEND Urology
DX: N13.30 Unspecified hydronephrosis (principal); Z79.2 Long term (current) use of antibiotics
CPT/HCPCS: 36415; 52332; 74176; 76000; 80048; 80053; 81001; 85025; 96361; 96372; 96374; 96375; 99285; A9270; C1769; C2625; G0378; J0690; J0696; J0744; J0780; J1100; J1170; J1885; J2250; J2270; J2405; J3010; J3260; J3480; J7030; J7040; J7120; 00910; 74450; 74450-26; 99283; J2704